=== PATIENT | female | born 1980 | race Caucasian/White ===

== ENCOUNTER 2016-11-24 19:58 | Emergency (ER) | payer BC, OTHER ==
[2016-11-24 20:09] VITALS: BP 137/81; PULSE 85; TEMP 98.3; BMI 24.6
--- NOTE | 2016-11-24 20:10 | PDOC ---
History of Present Illness - History of Present Illness Initial Comments: 11/24/16 21:10 The patient is a 36 year old female, with a significant past medical history of (2 years ago) and rabies shot (last year), who presents to the emergency department with left knee laceration s/p slip and fall at 6:30 pm today. Patient reports that she was walking home from the bus and slipped and fell on the sidewalk. She reports that there was broken glass on the floor in the area that she fell. She does not reports injury to any other body part. She denies other symptoms. Allergies: denies Past surgical history: None reported. Social history: Nonsmoker. Denies EtOH use and recreational drug use. Primary Care Physician: Tanvir Betts <Arti Beckford - Last Filed: 11/24/16 21:10> <Jori Moura - Last Filed: 11/24/16 23:16> - General Chief Complaint: Injury Stated Complaint: LEFT KNEE LACERATION Time Seen by Provider: 11/24/16 20:10 Past History <Arti Beckford - Last Filed: 11/24/16 21:10> - Reproductive History Therapeutic (s) & number: Yes (1) - Immunization History TDAP Vaccination: Yes (10/13/15) Immunization Up to Date: Yes - Suicide/Smoking/Psychosocial Hx Smoking History: Never smoked Have you smoked in the past 12 months: No Hx Alcohol Use: Yes (OCCASIONAL) Drug/Substance Use Hx: No Substance Use Type: None <Jori Moura - Last Filed: 11/24/16 23:16> - Past Medical History Allergies/Adverse Reactions: Allergies Allergy/AdvReac Type Severity Reaction Status Date / Time No Known Allergies Allergy Verified 11/24/16 20:01 Home Medications: Ambulatory Orders Amox-Tr/K Cl [Augmentin - 875Mg Tablet] 1 tab PO BID #10 tablet 11/24/16 Naproxen [Naprosyn -] 375 mg PO BID PRN #10 tablet 11/24/16 Review of Systems - Review of Systems Comments:: 11/24/16 21:11 CONSTITUTIONAL: Absent: Fever, Chills, Diaphoresis, Generalized Weakness, Malaise, Loss of Appetite HEENT: Absent: Rhinorrhea, Nasal Congestion, Throat Pain, Throat Swelling, Difficulty Swallowing, Mouth Swelling, Ear Pain, Eye Pain, Visual Changes CARDIOVASCULAR: Absent: Chest Pain, Syncope, Palpitations, Irregular Heart Rate, Lightheadedness , Peripheral Edema MUSCULOSKELETAL: Absent: Myalgia, Arthralgia, Joint Swelling, Back pain, Neck Pain SKIN: Present: left knee laceration. Some bleeding. Absent: Rash, Itching, Pallor <Arti Beckford - Last Filed: 11/24/16 21:10> *Physical Exam - Vital Signs Last Vital Signs Temp Pulse Resp BP Pulse Ox 98.3 F 85 15 137/81 100 11/24/16 19:59 11/24/16 19:59 11/24/16 19:59 11/24/16 19:59 11/24/16 19:59 <Arti Beckford - Last Filed: 11/24/16 21:10> - Vital Signs Last Vital Signs Temp Pulse Resp BP Pulse Ox 98.3 F 85 15 137/81 100 11/24/16 19:59 11/24/16 19:59 11/24/16 19:59 11/24/16 19:59 11/24/16 19:59 - Physical Exam Comments: 11/24/16 23:08 GENERAL: The patient is awake, alert, and fully oriented, in no acute distress. HEAD: Normal with no signs of trauma. EYES: Pupils equal, round and reactive to light, extraocular movements intact, sclera anicteric, conjunctiva clear. EXTREMITIES: The left lower extremity has a laceration, medial to lateral, over the anterior aspect of the left knee. The laceration is 3.5 cm in length. Range of motion is normal. Sensation is normal. Pulses are intact. There is no gross deformity. NEUROLOGICAL: Normal speech, normal gait. PSYCH: Normal mood, normal affect. SKIN: Warm, Dry, normal turgor, no rashes or lesions noted other than the left knee laceration with a small abrasion just below the laceration. <Jori Moura - Last Filed: 11/24/16 23:16> Procedures - Laceration/Wound Repair Left Knee Wound Length: 2.6 to 5.0 cm Wound Explored: no foreign body present Wound's Depth, Shape: linear Irrigated w/ Saline: Yes Betadine Prep: Yes Anesthesia: 2% Lidocaine Amount of Anesthetic (ccs): 20 Wound Repaired With: Sutures Suture Size/Type: 4:0, nylon Number of Sutures: 5 Layer Closure: No Sterile Dressing Applied: Yes Progress: 11/24/16 23:11 Skin prep with Betadine 2% lidocaine with sodium bicarbonate local anesthetic High pressure, high volume, repeated saline lavage to the wound Wound explored, no foreign body or contamination 4-0 nylon sutures, simple interrupted 5 Bacitracin and dry sterile dressing applied with Jay Jay bandage Patient advised regarding signs of infection and indications for immediate follow-up <Jori Moura - Last Filed: 11/24/16 23:16> ED Treatment Course - ADDITIONAL ORDERS Additional order review: Laboratory Results 11/24/16 20:35 Urine HCG, Qual Negative - Medications Given in the ED: ED Medications Discontinued Medications Generic Name Dose Route Start Last Admin Trade Name Freq PRN Reason Stop Dose Admin Ampicillin Sodium/Sulbactam 100 mls @ 200 mls/hr 11/24/16 20:36 11/24/16 20:50 Sodium 3 gm/ Sodium Chloride IVPB 11/24/16 21:05 200 mls/hr ONCE ONE Administration <Arti Beckford - Last Filed: 11/24/16 21:10> Medical Decision Making - Medical Decision Making 11/24/16 23:09 Was evaluated for a left knee laceration which was sustained when she tripped and fell earlier today. She was seen in urgent care but sent to the ED with a recommendation for IV antibiotics and x-rays. On examination, there is a 3.5 cm horizontal laceration. X-ray of the left knee shows no foreign body or bony injury. Final radiology reading is pending at the time of discharge. Urine test was negative. Wound repair was done, see procedure note. IV antibiotics were given. <Jori Moura - Last Filed: 11/24/16 23:16> *DC/Admit/Observation/Transfer - Attestations Scribe Attestion: 11/24/16 21:12 Documentation prepared by Arti Beckford, acting as medical center representative for Jori Moura MD. <Arti Beckford - Last Filed: 11/24/16 21:10> - Discharge Dispostion Admit: No <Jori Moura - Last Filed: 11/24/16 23:16> Diagnosis at time of Disposition: Laceration of left knee Qualifiers: Encounter type: initial encounter Qualified Code(s): S81.012A - Laceration without foreign body, left knee, initial encounter; S81.012A - Laceration without foreign body, left knee, initial encounter - Discharge Dispostion Disposition: HOME Condition at time of disposition: Improved - Prescriptions Prescriptions: Amox-Tr/K Cl [Augmentin - 875Mg Tablet] 1 tab PO BID #10 tablet Naproxen [Naprosyn -] 375 mg PO BID PRN #10 tablet PRN Reason: Pain - Referrals Referrals: Tanvir Betts MD [Primary Care Provider] - - Patient Instructions Printed Discharge Instructions: DI for Laceration Repair -- Simple Additional Instructions: Today you were evaluated for a laceration to the left knee. Sutures 5 were placed. Rest at home to help speed healing. Elevate the knee on pillows to speed healing. Use the bandage with an Jay Jay wrap and avoid bending her knee aggressively. Remove the dressing to shower, after showering dry the wound with a clean towel, apply bacitracin and reapply the dressing to keep it clean and dry. If you develop any signs of infection such as redness, swelling, streaks, or fever, go to the doctor or the emergency room immediately. Sutures should be removed in approximately 12 days plus or minus one day. He may follow up with your primary care physician for suture removal. If this is not workable, you may return to the emergency department for suture removal. - Post Discharge Activity Forms/Work/School Notes: Back to Work
[2016-11-24] MEDS ORDERED: NAPROXEN 500 MG TABLET (FP) ONE (20:32)
[2016-11-24] MEDS ORDERED: DIPHTH,PERTUSS(ACELL),TET VAC 0.5 ML VIAL IM ONE (20:36)
[2016-11-24] MEDS ORDERED: AMPICILLIN NA/SULBACTAM NA 3 GM in SODIUM CHLORIDE 100 ML IVPB ONE (20:36)
[2016-11-24] MEDS ORDERED: AMPICILLIN NA/SULBACTAM NA 3 GM VIAL ONE (20:41)
[2016-11-24] MEDS ORDERED: NAPROXEN 375 MG TABLET (FP) PO ONE (21:08)
[2016-11-24] MEDS ORDERED: SODIUM BICARBONATE 8.4% 50 MEQ/50 ML VIAL NR ONE (22:22)
[2016-11-24] MEDS ORDERED: LIDOCAINE HCL 2% (20ML MULTI-DOSE VIAL) NR ONE (22:22)
[2016-11-24] MEDS ORDERED: LIDOCAINE HCL 2% (50ML VIAL) INF ONE (22:22)
[2016-11-24] MEDS ORDERED: SODIUM BICARBONATE 8.4% 50 MEQ/50 ML VIAL ONE (22:24)
== END 2016-11-24 23:20 | disposition home or self-care (01) ==
LOC: FER 19:58
DX: S81.012A Laceration without foreign body, left knee, initial encounter (principal)
CPT/HCPCS: 73560-TC-LT; 84703; 99282-25